=== PATIENT | male | born 1960 | race Caucasian/White ===

== ENCOUNTER 2017-03-21 14:22 | Emergency (ER) | payer MEDICAID ==
[~2017-03-21] VITALS: Ht 180.3 cm; Wt 109.0 kg
[~2017-03-21 14:22] MED LIST: AMIT25TA9; ASPI-1159 PO; CHOL20004 PO; CITA10TA9 PO; DOCU-138 PO; DUCOLAX; EMTR1TAB11; FOLI-43; GABA800T97; IBUP-1636; TRAM50TA3 PO; tivicay PO
[2017-03-21 15:07] VITALS: BP 142/91
== END 2017-03-21 21:26 | disposition left against medical advice (07) ==
LOC: ER 20:24
DX: Z53.21 Procedure and treatment not carried out due to patient leaving prior to being seen by health care provider (principal)

== ENCOUNTER 2021-12-28 19:03 | Emergency (ER) | payer MEDICARE, MEDICAID ==
[~2021-12-28] VITALS: Ht 177.8 cm; Wt 100.0 kg
[~2021-12-28 19:03] MED LIST changes: -ASPI-1159 PO; +ASPI-1497 PO
[2021-12-28 19:07] VITALS: BP 142/90
[2021-12-28 20:13] LABS: BASOPHILS % 0.9 % (0.0-2.0); EOSINOPHILS % 3.1 % (0.0-5.0); HEMATOCRIT. 41.7 % (42.0-52.0); HEMOGLOBIN. 14.1 g/dL (14.0-18.0); LYMPHOCYTES % 13.8 % (20.0-50.0); MEAN CORPUSCULAR HEMOGLOBIN 29.7 pg (28.0-32.0); MEAN CORPUSCULAR VOLUME 87.7 fL (80.0-94.0); MEAN PLATELET VOLUME 7.4 fl (7.4-10.4); MONOCYTES % 9.9 % (2.0-8.0); NEUTROPHILS % 72.3 % (40.0-76.0); PLATELET 205 x1000/uL (130-400); RED BLOOD CELL COUNT 4.75 mill/uL (4.7-6.1); RED CELL DISTRIBUTION WIDTH 13.9 % (11.6-14.6)
[2021-12-28 20:14] LABS: CHLORIDE 109 mEq/L (98-107)
[2021-12-28 20:22] LABS: ETHANOL BLOOD < 10 mg/dL
== END 2021-12-28 20:48 | disposition left against medical advice (07) ==
LOC: ER 19:03
DX: R46.2 Strange and inexplicable behavior (principal); B19.20 Unspecified viral hepatitis C without hepatic coma; I10 Essential (primary) hypertension
CPT/HCPCS: 36415; 80053; 80307; 80320; 80329; 85025; 99283; G0480

== ENCOUNTER 2022-07-19 10:57 | Emergency (ER) | payer MEDICARE, MEDICAID ==
[~2022-07-19] VITALS: Ht 177.8 cm; Wt 90.0 kg
[~2022-07-19 10:57] MED LIST changes: +CITA10TA88 PO; -CITA10TA9 PO
[2022-07-19 10:59] VITALS: BP 139/90
[2022-07-19] MEDS ORDERED: METHOCARBAMOL 750MG TABLET PO SCH (11:44)
[2022-07-19] MEDS ORDERED: KETOROLAC 60MG/2ML VIAL IM ONE (11:45)
[2022-07-19] MEDS ORDERED: METH-653 MT (12:03)
== END 2022-07-19 12:45 | disposition home or self-care (01) ==
LOC: ER 10:57
DX: M54.41 Lumbago with sciatica, right side (principal); D64.9 Anemia, unspecified; F41.9 Anxiety disorder, unspecified; Z79.899 Other long term (current) drug therapy
CPT/HCPCS: 96372; 99283; J1885

== ENCOUNTER 2024-11-23 15:14 | Emergency (ER) | payer MEDICARE, MEDICAID ==
[~2024-11-23] VITALS: Ht 175.3 cm; Wt 80.0 kg
[~2024-11-23 15:14] MED LIST changes: +METH-653 MT
[2024-11-23 15:24] VITALS: TEMP 36.9; O2SAT 99
[2024-11-23 15:58] VITALS: BP 141/95; PULSE 106; RESP 16
[2024-11-23] MEDS: HYDROCODONE/ACETAMINOPHEN 5/325MG TABLET PO STA (15:58)
[2024-11-23] MEDS: KETOROLAC 30MG/ML VIAL IM STA ×2 (15:58→17:14)
[2024-11-23] MEDS ORDERED: HYDR-4001 MT (17:46)
[2024-11-23] MEDS ORDERED: NAPR-681 PO (17:46)
== END 2024-11-23 17:52 | disposition home or self-care (01) ==
LOC: ER 15:14
DX: M54.32 Sciatica, left side (principal); E11.9 Type 2 diabetes mellitus without complications; M19.90 Unspecified osteoarthritis, unspecified site; Z87.891 Personal history of nicotine dependence
CPT/HCPCS: 99284; 96372; J1885